=== PATIENT | male | born 1960 | race Caucasian/White ===

== ENCOUNTER → 2018-08-27 11:37 | Outpatient (CLI) | payer SELFPAY ==
[2018-08-27 12:24] LABS: Influenza A and B by PCR Rapid Negative (Negative)
== END ==
PROVIDERS: Family Provider Family Medicine; PCP Family Medicine; Visit Provider Family Medicine
DX: R68.89 Other general symptoms and signs (principal)
CPT/HCPCS: 87400

== ENCOUNTER → 2018-09-08 09:53 | Outpatient (CLI) | payer SELFPAY ==
[2018-09-08 11:08] LABS: Add Manual Diff / Slide Review NO; Basophils Percent Auto 0.7 % (0-2); Hematocrit 38.8 % (41-53); Hemoglobin 13.5 g/dL (13.5-17.5); Lymphocytes Percent Auto 26.8 % (25-40); Mean Corpuscular HGB Conc 34.8 % (30-36); Mean Corpuscular Hemoglobin 32.2 PG (26-34); Mean Corpuscular Volume 92.5 fL (80-100); Monocytes Percent Auto 6.5 % (3-14); Neutrophils Absolute Auto 2800 /uL (3000-5900); Platelet Count 210 X10^3/uL (150-400); Red Blood Cell Count 4.19 X10^6/uL (4.5-5.9); White Blood Cell Count 4.5 X10^3/uL (4.5-11.0)
[2018-09-08 11:22] LABS: Appearance Urine UA CLEAR; Bilirubin Urine UA NEGATIVE (NEGATIVE); Color Urine UA YELLOW; Glucose Urine UA NEGATIVE (Normal); Ketones Urine UA NEGATIVE (NEGATIVE); Leukocyte Esterase Urine UA NEGATIVE (NEGATIVE); Nitrite Urine UA NEGATIVE (Negative); Occult Blood Urine UA NEGATIVE (Negative); Protein Urine UA NEGATIVE (Negative); Specific Gravity Urine UA 1.025 (1.000-1.035); Urobilinogen Urine UA 0.2 E.U./dL (0.2)
[2018-09-08 11:28] LABS: Alanine Aminotransferase 36 IU/L (21-72); Albumin 4.2 g/dL (3.5-5.0); Albumin Globulin Ratio 1.5 (1.0-2.8); Alkaline Phosphatase 60 U/L (38-126); Aspartate Aminotransferase 31 IU/L (17-59); BUN Creatinine Ratio 22.2 (6-22); Bilirubin Total 0.5 mg/dL (0.2-1.3); Blood Urea Nitrogen 20 mg/dL (9-20); Calcium 8.9 mg/dL (8.4-10.2); Carbon Dioxide 26 mmol/L (22-32); Chloride 106 mmol/L (98-107); Cholesterol 181 mg/dL (140-199); Estimated Glomerular Filt Rate > 60.0 mL/min (>60); Globulin 2.8 g/dL (1.7-4.1); Glucose 99 mg/dL (70-100); HDL Cholesterol 49 mg/dL (40-60); HEMOLYSIS < 15 (0-50); LDL Cholesterol Calculated 110 mg/dL (<100); Potassium 4.1 mmol/L (3.4-5.1); Sodium 145 mmol/L (137-145); Triglycerides 108 mg/dL (35-150)
[2018-09-08 11:55] LABS: Thyroid Stimulating Hormone 1.92 uIU/mL (0.47-4.68)
[2018-09-08 11:57] LABS: Prostate Specific Antigen 0.981 ng/mL (0.10-4.00)
[2018-09-10 09:05] LABS: Hepatitis A Antibody IgM NONREACTIVE (NONREACTIVE); Hepatitis Acute Panel Interp 0.01 (NONREACTIVE); Hepatitis B Core Antibody IgM NONREACTIVE (NONREACTIVE); Hepatitis B Surface Antigen NONREACTIVE (NONREACTIVE); Hepatitis C Antibody NONREACTIVE
== END ==
PROVIDERS: Family Provider Family Medicine; PCP Family Medicine; Visit Provider Family Medicine
DX: Z13.220 Encounter for screening for lipoid disorders (principal); Z13.29 Encounter for screening for other suspected endocrine disorder; Z51.81 Encounter for therapeutic drug level monitoring; B82.9 Intestinal parasitism, unspecified; R50.9 Fever, unspecified; Z12.5 Encounter for screening for malignant neoplasm of prostate
CPT/HCPCS: 36415; 80053; 80061; 80074; 81003; 84153; 84443; 85025

== ENCOUNTER → 2018-09-09 16:10 | Outpatient (CLI) | payer SELFPAY | PROVIDERS: Family Provider Family Medicine; PCP Family Medicine; Visit Provider Family Medicine | DX: Z13.9 Encounter for screening, unspecified (principal) ==

== ENCOUNTER → 2018-09-18 10:00 | Outpatient (CLI) | payer SELFPAY | PROVIDERS: Family Provider Family Medicine; PCP Family Medicine; Visit Provider Family Medicine | DX: B82.9 Intestinal parasitism, unspecified (principal); R50.9 Fever, unspecified; R19.7 Diarrhea, unspecified | CPT/HCPCS: 87015; 87045; 87177; 87427; 87899 ==

== ENCOUNTER → 2020-03-23 11:45 | Outpatient (CLI) | payer OTHER, MEDICAID, SELFPAY ==
[2020-03-23 11:53] LABS: Bacteria Urine None Seen; WBC Urine None Seen (0-5/HPF)
[2020-03-23 12:31] LABS: Hematocrit 39.7 % (41-53); Mean Corpuscular HGB Conc 35.1 % (30-36); Mean Corpuscular Hemoglobin 32.6 PG (26-34); Mean Corpuscular Volume 92.8 fL (80-100); Platelet Count 163 X10^3/uL (150-400); Red Blood Cell Count 4.28 X10^6/uL (4.5-5.9); Red Cell Distribution Width 13.1 % (11.6-14.8); White Blood Cell Count 5.5 X10^3/uL (4.5-11.0)
[2020-03-23 13:00] LABS: Alanine Aminotransferase 22 IU/L (<50); Albumin 4.6 g/dL (3.5-5.0); Albumin Globulin Ratio 1.8 (1.0-2.8); Alkaline Phosphatase 72 U/L (38-126); Aspartate Aminotransferase 27 IU/L (17-59); Bilirubin Total 0.6 mg/dL (0.2-1.3); Blood Urea Nitrogen 22 mg/dL (9-20); Calcium 9.4 mg/dL (8.4-10.2); Carbon Dioxide 30 mmol/L (22-32); Chloride 104 mmol/L (98-107); Cholesterol 215 mg/dL (140-199); Estimated Glomerular Filt Rate > 60.0 mL/min (>60); Globulin 2.6 g/dL (1.7-4.1); Glucose 99 mg/dL (70-100); HDL Cholesterol 56 mg/dL (40-60); HEMOLYSIS < 15 (0-50); LDL Cholesterol Calculated 130 mg/dL (<100); Potassium 4.7 mmol/L (3.4-5.1); Sodium 138 mmol/L (137-145); Total Protein 7.2 g/dL (6.3-8.2); Triglycerides 147 mg/dL (35-150)
[2020-03-23 13:05] LABS: Appearance Urine UA CLEAR; Bilirubin Urine UA NEGATIVE (NEGATIVE); Color Urine UA YELLOW; Glucose Urine UA NEGATIVE (Negative); Ketones Urine UA NEGATIVE (NEGATIVE); Leukocyte Esterase Urine UA NEGATIVE (NEGATIVE); Nitrite Urine UA NEGATIVE (Negative); Occult Blood Urine UA TRACE-LYSED (Negative); Protein Urine UA NEGATIVE (Negative); Specific Gravity Urine UA 1.015 (1.000-1.035); Urobilinogen Urine UA 0.2 E.U./dL (0.2)
[2020-03-23 13:21] LABS: Culture Indicated Urine Cult Not Indicated; RBC Urine 0-1/HPF (0-5/HPF)
[2020-03-23 13:22] LABS: TSH w/ Reflex to FT4 3.09 uIU/mL (0.47-4.68)
== END ==
PROVIDERS: Family Provider Family Medicine; PCP Nurse Practitioner Family; Referring Provider Nurse Practitioner Family; Visit Provider Nurse Practitioner Family
DX: Z00.00 Encounter for general adult medical examination without abnormal findings (principal); Z13.6 Encounter for screening for cardiovascular disorders; Z12.5 Encounter for screening for malignant neoplasm of prostate; K42.9 Umbilical hernia without obstruction or gangrene; K92.1 Melena; R14.0 Abdominal distension (gaseous)
CPT/HCPCS: 36415; 80053; 80061; 81001; 84443; 85027; G0103

== ENCOUNTER → 2020-04-08 10:24 | Outpatient (CLI) | payer OTHER, MEDICAID, SELFPAY ==
[2020-04-09 09:11] LABS: COVID19 Sendout Not Detected (Not Detect)
== END ==
PROVIDERS: Family Provider Family Medicine; PCP Nurse Practitioner Family; Visit Provider Physician Assistant
DX: Z01.812 Encounter for preprocedural laboratory examination (principal)
CPT/HCPCS: 87635

== ENCOUNTER 2020-04-11 06:41 | Day surgery (SDC) | payer OTHER, MEDICAID, SELFPAY ==
[2020-04-08 07:36] VITALS: BMI 28.3
[2020-04-11] VITALS (7 sets, daily range): BP systolic 103–131; BP diastolic 69–88; PULSE 58–78; RESP 9–18; TEMP 36.1–36.6; O2SAT 94–99; BMI 28.3
--- NOTE | 2020-04-11 07:29 | SUR.OPER ---
Supine on padded OR bed, head on pillow, arms secured on padded arm boards at <90 degrees abduction, legs uncrossed, safety belt at thigh, tape over blanket over lower legs.
[2020-04-11] MEDS: LACTATED RINGERS 1,000 ML 42 ML IV (07:30)
--- NOTE | 2020-04-11 07:31 | PM.PREOP ---
Pre-operative Note COVID-19 COVID-19 status: Negative Result date/Date tested (Pos, Neg/Pending): 04/08/20 Interval Note History & Physical reviewed/Exam performed by Physician: Yes Changes to H&P: No
[2020-04-11] MEDS: CEFAZOLIN 2 GM/100 ML FROZ.PIGGY IV (07:40)
[2020-04-11] MEDS: BUPIVACAINE 0.5% (PF) VIAL 30 ML INJ (08:09)
--- NOTE | 2020-04-11 09:05 | PM.OP.1 ---
Operative Date/Time/Diagnoses Date of procedure: 04/11/20 Time of procedure: 08:44 Pre-op diagnosis: Umbilical hernia. Intermittent black stool Post-op diagnosis: other (Incisional hernia. Incarcerated.) Procedure & Clinicians Procedure: Repair of hernia. EGD Same procedure as scheduled: Yes Indications: Symptomatic hernia. Intermittent black bowel movements rule out gastric or duodenal ulcer Surgeon: Kofi Sullivan Click Yes if Unassisted: Yes Anesthesia Type: General Operative Notes Findings: Normal EGD. Incisional hernia. Incarcerated with a small amount of preperitoneal fat. Closure Type: primary Specimen(s): none sent Prosthetic devices, grafts, tissues, transplants, or devices: None Estimated Blood Loss (mL): 5 Blood products transfused: none Procedure in detail: Patient was placed supine on the operating room table and underwent general endotracheal anesthesia. A bite block was inserted adjacent to the tube. Scope was advanced under direct vision into the esophagus. The esophagus was normal. GE junction at 40 cm from the incisors. The stomach insufflated well. The body antrum and incisura were all normal in appearance. The pyloric channel was patent. The duodenum was unremarkable the 3rd part. The scope was brought slowly through in the duodenal bulb re-examined and 2nd part re-examined and still nothing was seen. The scope was brought into the stomach and retroflexed. The proximal stomach was normal in appearance. The scope was removed. The patient was then prepped and draped in the usual fashion. Once his very large amount of hair was removed I could see a very fine incision at the upper part of his umbilicus. Clearly an operation had been done here before that he did not recall. This left him with a hernia in the area. I made a small vertical incision under the umbilicus because that is where the location of the hernia sac was. I did not want to devascularize the umbilicus by making a curvilinear incision under it. Dissection was carried down level sac. The sac was from surrounding structures. The sac was opened and found to contain fat which would not reduced through the tiny defect and therefore was excised by transecting it. The fascial edge was identified and cleared of peritoneum. A single figure of 8 was used to close this defect which measured about 5 to 7 mm in diameter. The umbilicus had not been lifted and therefore did not require tacking down. The subcu was closed with interrupted 3 0 Vicryl. The skin was closed with interrupted 4 0 Vicryl subcuticular stitches and Steri-Strips. Dressing was applied the patient was awakened extubated and taken recovery room good condition. Complications: none Post-operative Condition: stable Disposition: PACU
--- NOTE | 2020-04-11 09:11 | SUR.PHASEI ---
Tolerated a few bites of applesauce, swallowing without difficulty.
[2020-04-11] MEDS: OXYCODONE/ACETAMINOPHEN 5/325 TABLET 1 TAB PO (09:14)
== END 2020-04-11 09:45 | disposition home or self-care (01) ==
PROVIDERS: Family Provider Family Medicine; PCP Nurse Practitioner Family; Referring Provider Specialist; Visit Provider Specialist
PROC: 0DJ08ZZ Inspection of Upper Intestinal Tract, Via Natural or Artificial Opening Endoscopic (ICD-10-PCS; CPT 43235; principal; 2020-04-11 07:45)
PROC: (CPT 49561; 2020-04-11 07:45)
DX: K43.0 Incisional hernia with obstruction, without gangrene (principal); R14.0 Abdominal distension (gaseous); K92.1 Melena
CPT/HCPCS: 49561; 43235; J0330; J0690; J1100; J2405; J2704; J3010

== ENCOUNTER → 2020-05-03 11:43 | Outpatient (CLI) | payer OTHER, MEDICAID, SELFPAY | PROVIDERS: Family Provider Family Medicine; PCP Nurse Practitioner Family; Referring Provider Physician Assistant; Visit Provider Physician Assistant | DX: R19.7 Diarrhea, unspecified (principal) | CPT/HCPCS: 87177 ==

== ENCOUNTER → 2020-05-06 09:29 | Outpatient (CLI) | payer OTHER, MEDICAID, SELFPAY ==
[2020-05-06 10:11] LABS: Add Manual Diff / Slide Review NO; Basophils Absolute Auto 0 /uL (0-100); Basophils Percent Auto 0.6 % (0-2); Eosinophils Absolute Auto 100 /uL (0-450); Eosinophils Percent Auto 1.7 % (2-4); Hematocrit 42.1 % (41-53); Hemoglobin 14.3 g/dL (13.5-17.5); Lymphocytes Absolute Auto 1200 /uL (1100-4500); Lymphocytes Percent Auto 22.9 % (25-40); Mean Corpuscular HGB Conc 33.9 % (30-36); Mean Corpuscular Hemoglobin 31.7 PG (26-34); Mean Corpuscular Volume 93.5 fL (80-100); Monocytes Absolute Auto 400 /uL (0-900); Monocytes Percent Auto 8.6 % (3-14); Neutrophils Absolute Auto 3400 /uL (1500-7000); Neutrophils Percent Auto 66.2 % (50-75); Platelet Count 164 X10^3/uL (150-400); Red Cell Distribution Width 12.9 % (11.6-14.8); White Blood Cell Count 5.1 X10^3/uL (4.5-11.0)
[2020-05-06 11:10] LABS: Alanine Aminotransferase 14 IU/L (<50); Albumin 4.8 g/dL (3.5-5.0); Alkaline Phosphatase 82 U/L (38-126); Amylase 74 U/L (30-110); Aspartate Aminotransferase 20 IU/L (17-59); BUN Creatinine Ratio 15.4 (6-22); Bilirubin Total 0.8 mg/dL (0.2-1.3); Blood Urea Nitrogen 14 mg/dL (9-20); Calcium 9.8 mg/dL (8.4-10.2); Carbon Dioxide 23 mmol/L (22-32); Chloride 98 mmol/L (98-107); Estimated Glomerular Filt Rate > 60.0 mL/min (>60); Globulin 2.4 g/dL (1.7-4.1); Glucose 88 mg/dL (70-100); HEMOLYSIS < 15 (0-50); Lipase 272 U/L (23-300); Potassium 4.4 mmol/L (3.4-5.1); Sodium 136 mmol/L (137-145); Total Protein 7.2 g/dL (6.3-8.2)
[2020-05-06 14:53] LABS: Adenovirus F 40/41 Not Detected (Not Detect); Astrovirus Not Detected (Not Detect); Campylobacter Not Detected (Not Detect); Clostridium difficile toxin AB Not Detected (Not Detect); Cryptosporidium Not Detected (Not Detect); Cyclospora cayetanensis Not Detected (Not Detect); Entamoeba histolytica Not Detected (Not Detect); Enteroaggregative E.coli Not Detected (Not Detect); Enteropathogenic E.coli Not Detected (Not Detect); Enterotoxigenic E.coli It/st Not Detected (Not Detect); Giardia lamblia Not Detected (Not Detect); Norovirus GI/GII Not Detected (Not Detect); Plesiomonsa shigelloides Not Detected (Not Detect); Rotavirus A Not Detected (Not Detect); Salmonella Not Detected (Not Detect); Sapovirus Not Detected (Not Detect); Shiga-like toxin-prod E.coli Not Detected (Not Detect); Shigella/Enteroinvasive E.coli Not Detected (Not Detect); Vibrio Not Detected (Not Detect); Vibrio cholerae Not Detected (Not Detect); Yersinia enterocolitica Not Detected (Not Detect)
[2020-05-08 12:36] LABS: H. Pylori Antigen Stool Negative (Negative)
== END ==
PROVIDERS: Family Provider Family Medicine; PCP Nurse Practitioner Family; Referring Provider Physician Assistant; Visit Provider Physician Assistant
DX: R19.7 Diarrhea, unspecified (principal)
CPT/HCPCS: 36415; 80053; 82150; 83690; 85025; 87338; 87507

== ENCOUNTER 2020-06-24 18:44 | Observation (INO) | payer OTHER, MEDICAID, SELFPAY ==
[2020-06-24] VITALS (7 sets, daily range): BP systolic 126–143; BP diastolic 83–91; PULSE 50–65; RESP 14–18; TEMP 36.1–36.7; O2SAT 95–99; BMI 28.1
--- NOTE | 2020-06-24 19:24 | DI.RAD.S_ITS ---
PROCEDURE: XR CHEST 1V INDICATIONS: Chest pain TECHNIQUE: One view of the chest was acquired. COMPARISON: None. FINDINGS: Surgical changes and devices: None. Lungs and pleura: Lungs are clear. No pleural effusions or pneumothorax. Mediastinum: Mediastinal contours appear normal. Heart size is normal. Bones and chest wall: No suspicious bony lesions. Overlying soft tissues appear unremarkable. IMPRESSION: No acute cardiopulmonary disease process. Dictated by: Malinda Lilly MD, PhD on 06/24/2020 at 20:24 Approved by: Malinda Lilly MD, PhD on 06/24/2020 at 20:24
[2020-06-24 20:00] LABS: Add Manual Diff / Slide Review NO; Basophils Absolute Auto 100 /uL (0-100); Eosinophils Absolute Auto 200 /uL (0-450); Eosinophils Percent Auto 3.1 % (2-4); Hematocrit 38.3 % (41-53); Hemoglobin 13.3 g/dL (13.5-17.5); Lymphocytes Absolute Auto 1700 /uL (1100-4500); Lymphocytes Percent Auto 29.6 % (25-40); Mean Corpuscular HGB Conc 34.7 % (30-36); Mean Corpuscular Hemoglobin 32.8 PG (26-34); Mean Corpuscular Volume 94.6 fL (80-100); Monocytes Absolute Auto 500 /uL (0-900); Monocytes Percent Auto 9.2 % (3-14); Neutrophils Absolute Auto 3200 /uL (1500-7000); Neutrophils Percent Auto 57.1 % (50-75); Platelet Count 156 X10^3/uL (150-400); Red Blood Cell Count 4.05 X10^6/uL (4.5-5.9); Red Cell Distribution Width 14.2 % (11.6-14.8); White Blood Cell Count 5.7 X10^3/uL (4.5-11.0)
[2020-06-24 20:17] LABS: INR 0.9 (0.9-1.3); Prothrombin Time 10.9 SECONDS (10.1-12.7)
[2020-06-24 20:19] LABS: PTT Partial Thromboplastin Tim 26 SECONDS (26.4-36.2)
[2020-06-24 20:22] LABS: Alanine Aminotransferase 12 IU/L (<50); Albumin 4.1 g/dL (3.5-5.0); Albumin Globulin Ratio 1.5 (1.0-2.8); Alkaline Phosphatase 71 U/L (38-126); Aspartate Aminotransferase 24 IU/L (17-59); BUN Creatinine Ratio 24.7 (6-22); Bilirubin Total 0.6 mg/dL (0.2-1.3); Blood Urea Nitrogen 24 mg/dL (9-20); Calcium 9.3 mg/dL (8.4-10.2); Carbon Dioxide 24 mmol/L (22-32); Chloride 104 mmol/L (98-107); Creatine Kinase 99 U/L (55-170); Estimated Glomerular Filt Rate > 60.0 mL/min (>60); Globulin 2.7 g/dL (1.7-4.1); Glucose 98 mg/dL (70-100); HEMOLYSIS < 15 (0-50); Potassium 3.8 mmol/L (3.4-5.1); Sodium 137 mmol/L (137-145); Total Protein 6.8 g/dL (6.3-8.2)
[2020-06-24 20:34] LABS: Troponin I < 0.012 ng/mL (0.01-0.034)
--- NOTE | 2020-06-24 21:25 | ED.CHESTPAIN ---
HPI - Chest Pain General Chief Complaint: Chest Pain Stated Complaint: PALPITATIONS LEFT SHOULDER PAIN Time Seen by Provider: 06/24/20 19:24 Source: patient Mode of arrival: Ambulatory History of Present Illness HPI narrative: Patient complains off and on left shoulder arm discomfort the past few months. At times fatigue. No direct chest pain. However today started with palpitations. Not had that before. Left shoulder discomfort more severe recently. Non reproducible. Family history of coronary disease including sister and father. Last stress test in his 30s. No history of high blood pressure or hypercholesteremia or smoking. No recent illness. No chest pain or arm discomfort at this time. He took 81 mg aspirin today Related Data Home Medications Medication Instructions Recorded Confirmed ascorbic acid (vitamin C) 500 mg 1,000 mg PO DAILY 03/23/20 06/24/20 capsule multivitamin 1 tab PO DAILY 03/23/20 06/24/20 Allergies Allergy/AdvReac Type Severity Reaction Status Date / Time No Known Drug Allergies Allergy Verified 04/28/20 09:32 Review of Systems Review of Systems Narrative: GENERAL: Denies chills, fatigue, malaise, fever, sweats. HEENT: Denies sinus pain, ear pain, sore throat, difficulty swallowing, dizziness. RESPIRATORY: Denies dyspnea, cough, wheezing, hemoptysis, sputum. CARDIOVASCULAR: Denies chest pain, complaints palpitations, denies orthopnea, edema, GASTROINTESTINAL: Denies nausea, vomiting, abdominal pain, diarrhea, constipation, melena. : Denies dysuria, frequency, incontinence, hematuria, urinary retention. MUSCULOSKELETAL: denies weakness, joint pain, or bony pain SKIN: Denies rash, skin lesions NEUROLOGIC: Denies weakness, headache, numbness, change in speech, confusion, seizures, incoordination. PSYCHIATRIC: No concerning psychosocial issues. ROS Unobtainable: All systems reviewed & are unremarkable except as noted in HPI and below Patient History Medical History (Updated 06/25/20 @ 00:18 by MATILDE Hurt) Abdominal bloating (Acute) Black stool (Acute) Primary insomnia (03/08/17) Umbilical hernia (Acute) Surgical History (Updated 06/25/20 @ 00:18 by MATILDE Hurt) History of colonoscopy (Acute) History of removal of cyst (Acute) Status post amputation of extremity Status post hernia repair Family History (Updated 06/25/20 @ 00:20 by MATILDE Hurt) Grandmother Heart disease Grandfather Cancer Grandmother Dementia Father Heart disease Cancer Mother Gallstones Sister Cardiac arrhythmia S/P implantation of automatic cardioverter/defibrillator (AICD) Grandfather Suicide Social History marital status: household members: spouse occupational status: employed Smoking Status: Never smoker alcohol intake: current substance use type: does not use Smoking Status: Never smoker alcohol intake frequency: a few times a week Substance Use Type: does not use Exam Narrative Exam Narrative: GENERAL: patient appears stated age. Well-nourished, well-developed patient, in no distress, not toxic HEAD: Atraumatic. Normocephalic. EYES: Pupils equal round and reactive. Extraocular motions intact. No scleral icterus. No injection or drainage. ENT: Nose without bleeding, purulent drainage. Throat without erythema, tonsillar hypertrophy or exudate. Airway patent. NECK: Trachea midline. Non tender CARDIOVASCULAR: Regular rate and rhythm without murmurs, gallops, or rubs. RESPIRATORY: Clear to auscultation. Breath sounds equal bilaterally. No wheezes, rales, or rhonchi. GASTROINTESTINAL: Abdomen soft, non-tender, nondistended. EXTREMITIES: No edema or joint tenderness. BACK: Nontender without deformity or crepitance. No flank tenderness. NEURO: AOx4. SKIN: No rash or erythema of visible areas PSYCH: Not anxious, is cooperative Initial Vital Signs Initial Vital Signs: Vital Signs Temperature 97.0 F L 06/24/20 18:52 Pulse Rate 65 06/24/20 18:52 Respiratory Rate 16 06/24/20 18:52 Blood Pressure 139/87 06/24/20 18:52 Pulse Oximetry 99 06/24/20 18:52 Course Course Course Narrative: Informed patient and he agrees for admission here. No chest pain at this time. Decision to Admit Date: 06/24/20 Decision to Admit time: 21:34 Orders Ordered: ED Orders 06/24/20 18:51 EKG-12 Lead Stat 06/24/20 19:24 XR chest 1V Stat 06/24/20 19:55 Complete Blood Count AUTO DIFF Stat Comprehensive Metabolic Panel Stat Partial Thromboplastin Time Stat Prothrombin Time INR Stat Troponin & CK Cardiac Panel Stat 06/24/20 21:20 COVID19 -ED/INPAT/OR/L&D Stat Acetaminophen (Tylenol) 650 mg PO Q6HR PRN PRN Reason: Fever/Mild Pain (1-3) Al Hydrox/Mg Hydrox/Simethicone (Maalox Plus) 30 ml PO Q6HR PRN PRN Reason: Dyspepsia Aspirin (Aspirin Ec) 81 mg PO DAILY [facility] Atorvastatin Calcium (Lipitor) 20 mg PO BEDTIME [facility] Calcium Carbonate (Tums) 1,000 mg PO Q4HR PRN PRN Reason: Dyspepsia Heparin Sodium (Porcine) (Heparin) 5,000 unit SUBCUT BID [facility] Sodium Chloride (Normal Saline 0.45%) 1,000 mls @ 75 mls/hr IV CONT MATT Last Admin: 06/25/20 00:21 Dose: 75 mls/hr Documented by: GLENDY Morphine Sulfate (Morphine) 2 mg IV Q5MIN PRN PRN Reason: Chest Pain Naloxone HCl (Narcan) 0.2 mg IV Q2MIN PRN PRN Reason: Opiate Reversal Nitroglycerin (Nitrostat) 0.4 mg SL [id number] PRN PRN Reason: Chest Pain Ondansetron HCl (Zofran) 4 mg IV Q8HR PRN PRN Reason: Nausea And Vomiting Discontinued Medications Al Hydrox/Mg Hydrox/Simethicone (Maalox Plus) 30 ml PO NOW ONE Stop: 06/24/20 23:21 Last Admin: 06/25/20 00:19 Dose: 30 ml Documented by: GLENDY Aspirin (Aspirin Ec) 243 mg PO NOW ONE Stop: 06/24/20 21:06 Last Admin: 06/24/20 21:48 Dose: 243 mg Documented by: FLORENCIO Naloxone HCl (Narcan) 0.2 mg IV Q2MIN PRN PRN Reason: Opiate Reversal Pantoprazole Sodium (Protonix) 40 mg IV NOW ONE Stop: 06/24/20 23:21 Last Admin: 06/25/20 00:19 Dose: 40 mg Documented by: GLENDY Reevaluation(s) Reevaluation #1: No chest pain no palpitations at this time. Time: 21:34 Consultations Consultation #1: s/w dr talley, cardiology..pt can stay here for r/o and echo Time: 21:06 Consultation #2: Spoke with hospitalist, evelin Arreguin, will admit Time: 21:41 Vital Signs Vital signs: Vital Signs - 8 hr 06/24/20 18:52 06/24/20 20:00 06/24/20 20:30 Temperature 97.0 F L Pulse Rate 65 54 L 53 L Respiratory Rate 16 14 14 Blood Pressure 139/87 126/85 Pulse Oximetry 99 98 95 06/24/20 21:00 06/24/20 21:30 Temperature Pulse Rate 50 L 62 Respiratory Rate 15 16 Blood Pressure 138/88 141/91 H Pulse Oximetry 98 96 MDM - Chest Pain Differential Diagnosis Differential diagnosis: Likely stable angina, unstable angina pectoris and atypical chest pain Lab Data Attestation: I reviewed the patient's lab results. Result diagrams: 06/24/20 19:55 06/24/20 19:55 Labs: Lab Results 06/24/20 06/24/20 06/24/20 Range/Units 19:55 19:55 19:55 WBC 5.7 (4.5-11.0) X10^3/uL RBC 4.05 L (4.5-5.9) X10^6/uL Hgb 13.3 L (13.5-17.5) g/dL Hct 38.3 L (41-53) % MCV 94.6 (80-100) fL MCH 32.8 (26-34) PG MCHC 34.7 (30-36) % RDW 14.2 (11.6-14.8) % Plt Count 156 (150-400) X10^3/uL Neut % (Auto) 57.1 (50-75) % Lymph % (Auto) 29.6 (25-40) % Murray % (Auto) 9.2 (3-14) % Eos % (Auto) 3.1 (2-4) % Baso % (Auto) 1.0 (0-2) % Neut # (Auto) 3200 (4347-2966) /uL Lymph # (Auto) 1700 (5329-0555) /uL Murray # (Auto) 500 (0-900) /uL Eos # (Auto) 200 (0-450) /uL Baso # (Auto) 100 (0-100) /uL PT 10.9 (10.1-12.7) SECONDS INR 0.9 (0.9-1.3) APTT 26 L (26.4-36.2) SECONDS Sodium 137 (137-145) mmol/L Potassium 3.8 (3.4-5.1) mmol/L Chloride 104 (98-107) mmol/L Carbon Dioxide 24 (22-32) mmol/L BUN 24 H (9-20) mg/dL Creatinine 0.97 (0.66-1.25) mg/dL Estimated GFR > 60.0 (>60) mL/min BUN/Creatinine Ratio 24.7 H (6-22) Glucose 98 (70-100) mg/dL Calcium 9.3 (8.4-10.2) mg/dL Magnesium (1.6-2.3) mg/dL Total Bilirubin 0.6 (0.2-1.3) mg/dL AST 24 (17-59) IU/L ALT 12 (<50) IU/L Alkaline Phosphatase 71 (38-126) U/L Total Creatine Kinase 99 (55-170) U/L CK-MB (CK-2) TNP CK-MB (CK-2) Rel Index TNP Troponin I < 0.012 (0.01-0.034) ng/mL Total Protein 6.8 (6.3-8.2) g/dL Albumin 4.1 (3.5-5.0) g/dL Globulin 2.7 (1.7-4.1) g/dL Albumin/Globulin Ratio 1.5 (1.0-2.8) COVID-19 PCR (Negative) 06/24/20 06/24/20 Range/Units 19:57 21:20 WBC (4.5-11.0) X10^3/uL RBC (4.5-5.9) X10^6/uL Hgb (13.5-17.5) g/dL Hct (41-53) % MCV (80-100) fL MCH (26-34) PG MCHC (30-36) % RDW (11.6-14.8) % Plt Count (150-400) X10^3/uL Neut % (Auto) (50-75) % Lymph % (Auto) (25-40) % Murray % (Auto) (3-14) % Eos % (Auto) (2-4) % Baso % (Auto) (0-2) % Neut # (Auto) (6958-7035) /uL Lymph # (Auto) (6859-7967) /uL Murray # (Auto) (0-900) /uL Eos # (Auto) (0-450) /uL Baso # (Auto) (0-100) /uL PT (10.1-12.7) SECONDS INR (0.9-1.3) APTT (26.4-36.2) SECONDS Sodium (137-145) mmol/L Potassium (3.4-5.1) mmol/L Chloride (98-107) mmol/L Carbon Dioxide (22-32) mmol/L BUN (9-20) mg/dL Creatinine (0.66-1.25) mg/dL Estimated GFR (>60) mL/min BUN/Creatinine Ratio (6-22) Glucose (70-100) mg/dL Calcium (8.4-10.2) mg/dL Magnesium 2.2 (1.6-2.3) mg/dL Total Bilirubin (0.2-1.3) mg/dL AST (17-59) IU/L ALT (<50) IU/L Alkaline Phosphatase (38-126) U/L Total Creatine Kinase (55-170) U/L CK-MB (CK-2) CK-MB (CK-2) Rel Index Troponin I (0.01-0.034) ng/mL Total Protein (6.3-8.2) g/dL Albumin (3.5-5.0) g/dL Globulin (1.7-4.1) g/dL Albumin/Globulin Ratio (1.0-2.8) COVID-19 PCR Negative (Negative) Imaging Data Chest x-ray: Radiologist's Impression: [address] [address] XRay Report Signed Patient: Rosalino Martínez PMR#: [id number] : 2Acct:[id number] Age/Sex: 60 / MDate of Service: 06/24/20 Loc: ED Accession Number: [id number] Procedure: XR chest 1V Ordering Provider: Rigoberto Vee MD PROCEDURE: XR CHEST 1V INDICATIONS: Chest pain TECHNIQUE: One view of the chest was acquired. COMPARISON: None. FINDINGS: Surgical changes and devices: None. Lungs and pleura: Lungs are clear. No pleural effusions or pneumothorax. Mediastinum: Mediastinal contours appear normal. Heart size is normal. Bones and chest wall: No suspicious bony lesions. Overlying soft tissues appear unremarkable. IMPRESSION: No acute cardiopulmonary disease process. Dictated by: Malinda Lilly MD, PhD on 06/24/2020 at 20:24 Approved by: Malinda Lilly MD, PhD on 06/24/2020 at 20:24 ECG Data Attestation: I personally reviewed and interpreted this ECG as follows: Interpretation: Sinus bradycardia no ST elevation or depression ventricular rate 56 MDM Narrative Medical decision making narrative: Worsening symptoms appropriate for admission here today for echo and rule out. I did speak with brine maker and agrees for admission here. Discharge Plan Departure Patient Disposition: Admitted as Observation Clinical Impression: Atypical chest pain Discharge Date/Time: 06/24/20 22:01 Referrals: Claire Hodgson ARNP [Primary Care Provider] - Admit Date/Time: 06/24/20 21:41 Admit Provider: Corey Arreguin
[2020-06-24] MEDS: ASPIRIN EC 81 MG TABLET 243 MG PO (21:48)
[2020-06-24 21:51] LABS: COVID19 -Nasal RAPID Negative (Negative)
[2020-06-24 23:02] LABS: Magnesium 2.2 mg/dL (1.6-2.3)
--- NOTE | 2020-06-24 23:22 | P.HP_ITS ---
History of Present Illness History of Present Illness Date Patient Seen: 06/24/20 Time Patient Seen: 23:00 Chief complaint: PALPITATIONS LEFT SHOULDER PAIN Narrative: Mr. Rosalino Martínez is a 60-year-old male with a past medical history significant for insomnia for which she previously took clonazepam but is no longer and urinary frequency who presents to the ER with complaints of palpitations. Patient reports having left posterior shoulder discomfort off and on for approximately 1 month. He describes location as next to his left scapula. He describes as an aching pain that is not palpable reproducible nor worsened with activity. The patient reports developing intermittent palpitations today that are brief and non associative with activity. He endorses mild chest pressure with shortness of breath in association with the episodes but denies diaphoresis. He has had no nausea or vomiting and denies cough or wheezing. The patient states he was concerned enough to take a 81 mg aspirin today. He has taken no other medications and a thing seems to make the discomfort better or worse. The patient provides a history of flying back from [place] yesterday. He denies any pleuritic chest discomfort, has no calf or leg pain. He states he does get up and walk around on the aircraft does not use compression stockings on long flights. He does have a significant family history of cardiac disease with his father having an arrhythmia for which he is anticoagulated an implanted cardiac defibrillator, his mother has mitral valve disease and his sister is described as having cardiac syncope and also had implanted cardiac defibrillator. The patient has had a previous cardiac evaluation with a stress test at age 32. Upon arrival to the ER the patient is afebrile with temperature 97.0?, his heart rate of 65, blood pressure 139/87, respirations 16 saturating 99% on room air. A chest x-ray is obtained which finds no acute cardiopulmonary processes. On laboratory analysis he has a white count of 5.7, hemoglobin of 13.3 and hematocrit of 38.3. He has a PT of 10.9 and INR is 0.9 and a PTT of 26. His electrolytes are within normal limits with a potassium of 3.8 and has a BUN of 24 and a creatinine 0.97. His magnesium level is 2.2. His liver functions are all within normal range and he has a total CK of 99 and a negative troponin less than 0.012. On 12 lead EKG sinus bradycardia with ventricular rate of [address] T-wave changes, no evidence of infarct. COVID-19 screening is negative. Cardiology is contacted by the ER provider recommends admission for monitoring serial troponins and echocardiogram. Per verbal report from the ER provider cardiology indicates the patient can undergo stress test on outpatient basis. In the ER the patient received aspirin 243 mg and is admitted to the medicine service for chest pain rule out ACS. Patient History Medical History (Updated 06/25/20 @ 00:18 by MATILDE Hurt) Abdominal bloating (Acute) Black stool (Acute) Primary insomnia (03/08/17) Umbilical hernia (Acute) Surgical History (Updated 06/25/20 @ 00:18 by MATILDE Hurt) History of colonoscopy (Acute) History of removal of cyst (Acute) Status post amputation of extremity Status post hernia repair Family & Social History Family History (Updated 06/25/20 @ 00:20 by MATILDE Hurt) Grandmother Heart disease Grandfather Cancer Grandmother Dementia Father Heart disease Cancer Mother Gallstones Sister Cardiac arrhythmia S/P implantation of automatic cardioverter/defibrillator (AICD) Grandfather Suicide Social History: household members spouse Safety & Behavioral: Feels Safe in Current Yes Environment Been Physically Hurt or No Threatened By a Person Suicidal Ideation Description None Suicide Plan Description No Plan Tobacco & Substance use: Smoking Status Never smoker alcohol intake current alcohol intake frequency a few times a week Substance Use Type does not use Meds Home Medications and Allergies Home Medications Medication Instructions Recorded Confirmed Type ascorbic acid (vitamin C) 500 mg 1,000 mg PO DAILY 03/23/20 06/24/20 History capsule multivitamin 1 tab PO DAILY 03/23/20 06/24/20 History Allergies Allergy/AdvReac Type Severity Reaction Status Date / Time No Known Drug Allergies Allergy Verified 04/28/20 09:32 Review of Systems Review of Systems ROS: Yes All systems reviewed with the patient and are negative except as otherwise documented Exam Vital Signs (past 8 hours): - 06/24/20 18:52 06/24/20 20:00 06/24/20 20:30 Temperature 97.0 F L Pulse Rate 65 54 L 53 L Respiratory Rate 16 14 14 Blood Pressure 139/87 126/85 Pulse Oximetry 99 98 95 06/24/20 21:00 06/24/20 21:30 06/24/20 21:57 Temperature 98.0 F Pulse Rate 50 L 62 50 L Respiratory Rate 15 16 16 Blood Pressure 138/88 141/91 H 130/84 Pulse Oximetry 98 96 98 06/24/20 22:45 Temperature 97.0 F L Pulse Rate 63 Respiratory Rate 18 Blood Pressure 143/83 H Pulse Oximetry 99 Oxygen Delivery Method Room Air Narrative Exam Narrative: GENERAL APPEARANCE: well developed, well nourished, in no acute distress. HEENT: Normocephalic, PERRLA, sclera is anicteric, EOMs intact without nystagmus, no rhinorrhea, mucous membranes are moist and pink without lesions or exudate. NECK/THYROID: neck supple, no JVD, no carotid bruit, no thyromegaly, trachea midline. LYMPH NODES: no cervical or supraclavicular lymphadenopathy. SKIN: [place], warm and dry, no visible lesions, rashes, ulcerations or petechiae. HEART: Bradycardic heart rate with regular rhythm, S1-S2, no murmur, no rubs or gallops, brisk capillary refill, no edema LUNGS: clear to auscultation bilaterally, no coarseness crackles or wheezing, no cough present CHEST: Symmetrical movement, no accessory muscle use, good tidal volume no pain to AP or lateral compression. ABDOMEN: Soft, no distention, epigastric discomfort on palpation, no abdominal tenderness, no guarding or peritoneal signs, no organomegaly, no flank or suprapubic tenderness, active bowel tones. BACK: Normal curvature, nontender to palpation, no CVA tenderness on percussion EXTREMITIES: No pain with range of motion upper extremities, strength is 5/5 and symmetrical, no deformities or joint effusions, stable gait, no calf tenderness, negative Homans sign. NEUROLOGIC: AAO x4, no focal neurologic deficits, cranial nerves II-XII grossly intact, sensation intact to light touch, hearing grossly normal to speech. PSYCH: Good judgment, good insight, linear thought process, cooperative, appropriate with stable behavior Objective Labs Result Diagrams: 06/24/20 19:55 06/24/20 19:55 Labs: Laboratory Results - last 24 hr 06/24/20 06/24/20 06/24/20 19:55 19:55 19:55 WBC 5.7 RBC 4.05 L Hgb 13.3 L Hct 38.3 L MCV 94.6 MCH 32.8 MCHC 34.7 RDW 14.2 Plt Count 156 Neut % (Auto) 57.1 Lymph % (Auto) 29.6 [place] % (Auto) 9.2 Eos % (Auto) 3.1 Baso % (Auto) 1.0 Neut # (Auto) 3200 Lymph # (Auto) 1700 [place] # (Auto) 500 Eos # (Auto) 200 Baso # (Auto) 100 PT 10.9 INR 0.9 APTT 26 L Sodium 137 Potassium 3.8 Chloride 104 Carbon Dioxide 24 BUN 24 H Creatinine 0.97 Estimated GFR > 60.0 BUN/Creatinine Ratio 24.7 H Glucose 98 Calcium 9.3 Magnesium Total Bilirubin 0.6 AST 24 ALT 12 Alkaline Phosphatase 71 Total Creatine Kinase 99 CK-MB (CK-2) TNP CK-MB (CK-2) Rel Index TNP Troponin I < 0.012 Total Protein 6.8 Albumin 4.1 Globulin 2.7 Albumin/Globulin Ratio 1.5 COVID-19 PCR 06/24/20 06/24/20 19:57 21:20 WBC RBC Hgb Hct MCV MCH MCHC RDW Plt Count Neut % (Auto) Lymph % (Auto) [place] % (Auto) Eos % (Auto) Baso % (Auto) Neut # (Auto) Lymph # (Auto) [place] # (Auto) Eos # (Auto) Baso # (Auto) PT INR APTT Sodium Potassium Chloride Carbon Dioxide BUN Creatinine Estimated GFR BUN/Creatinine Ratio Glucose Calcium Magnesium 2.2 Total Bilirubin AST ALT Alkaline Phosphatase Total Creatine Kinase CK-MB (CK-2) CK-MB (CK-2) Rel Index Troponin I Total Protein Albumin Globulin Albumin/Globulin Ratio COVID-19 PCR Negative Assessment & Plan Assessment & Plan narrative: This is a 60-year-old former smoker who only has medical history of insomnia but a strong family history of cardiac disease having undergone previous cardiac workup at age 32. Is a former smoker quitting at age 39. Patient has had posterior wall chest pain at the left scapular border for approximately 1 month that would common go on associated with activity or movement. The patient returned home a on a flight from [place] yesterday and developed onset of palpitations today. 1. Atypical chest pain, left posterior chest wall intermittent for 1 month, rule out ACS, present on admission, active. -posterior chest wall pain without changes with movement or activity, nothing makes the pain better or worse. The patient has a strong family history of 1st degree relatives with heart disease, no personal history of hyperlipidemia or hypertension. -12 lead EKG finds sinus bradycardia with ventricular rate of 55 without ectopy, ST/T-wave changes or infarct. -total CK is 99 and cardiac troponin is less than 0.012. Will obtain trend 3 troponins. -patient just completed a long overseas flight [place], no calf pain, will obtain D-dimer. -patient with epigastric tenderness which may be referring to back, ordered Maalox p.o. and Protonix 40 mg IV x1 now. -per cardiology recommendation related by ER physician, ordered echocardiogram. -multiple nitroglycerin 0.4 mg sublingual every 5 minutes x3 for chest pain, morphine sulfate 2 mg IV for chest pain unrelieved by nitro. 2. Primary Insomnia, chronic, stable. -patient recently took clonazepam as a sleep aid and discontinue the medication a few years ago. -patient travels frequently between the [facility] and [facility] and [facility], he has frequent disruptions of his sleep cycle however uses no sleep aids. VTE prophylaxis: SCDs, heparin IV fluid: Normal saline 75 cc/hour Diet: Heart healthy Code status: Full code, he does need his mother be his surrogate decision maker. The patient is admitted to the hospital due to the severity of symptoms and potential risk for complications, adverse events and further evaluation and heart monitoring. The patient is admitted as observation with expected length of stay to be less than 2 midnights. Scores GCS [place] coma scale eye opening: Spontaneous Roberto coma scale verbal response: Orientated [place] coma scale motor response: Obey commands [place] coma scale total score: 15
[2020-06-25 00:18] LABS: D Dimer < 200 ng/mL (<230)
[2020-06-25] MEDS: MAG HYDROX/ALUM/SIMETH 30 ML UDC PO (00:19)
[2020-06-25] MEDS: PANTOPRAZOLE 40 MG VIAL IV (00:19)
[2020-06-25] MEDS: SODIUM CHLORIDE 0.45% 1,000 ML 75 ML IV ×2 (00:21→12:56)
[2020-06-25 00:30] LABS: Troponin I < 0.012 ng/mL (0.01-0.034)
[2020-06-25 00:44] VITALS: BP 104/71; PULSE 57; RESP 16; TEMP 36.9; O2SAT 96
[2020-06-25 05:15] LABS: Add Manual Diff / Slide Review NO; BUN Creatinine Ratio 18.8 (6-22); Basophils Absolute Auto 0 /uL (0-100); Basophils Percent Auto 0.9 % (0-2); Blood Urea Nitrogen 18 mg/dL (9-20); Calcium 8.7 mg/dL (8.4-10.2); Carbon Dioxide 29 mmol/L (22-32); Chloride 105 mmol/L (98-107); Cholesterol 163 mg/dL (140-199); Eosinophils Absolute Auto 200 /uL (0-450); Estimated Glomerular Filt Rate > 60.0 mL/min (>60); Glucose 102 mg/dL (70-100); HDL Cholesterol 49 mg/dL (40-60); HEMOLYSIS < 15 (0-50); Hematocrit 37.8 % (41-53); Hemoglobin 12.8 g/dL (13.5-17.5); LDL Cholesterol Calculated 94 mg/dL (<100); Lymphocytes Absolute Auto 1400 /uL (1100-4500); Mean Corpuscular HGB Conc 33.8 % (30-36); Mean Corpuscular Hemoglobin 32.1 PG (26-34); Mean Corpuscular Volume 94.9 fL (80-100); Monocytes Absolute Auto 400 /uL (0-900); Monocytes Percent Auto 8.6 % (3-14); Neutrophils Absolute Auto 2900 /uL (1500-7000); Neutrophils Percent Auto 58.5 % (50-75); Platelet Count 150 X10^3/uL (150-400); Potassium 4.2 mmol/L (3.4-5.1); Red Blood Cell Count 3.98 X10^6/uL (4.5-5.9); Red Cell Distribution Width 14.1 % (11.6-14.8); Sodium 139 mmol/L (137-145); Triglycerides 100 mg/dL (35-150); White Blood Cell Count 4.9 X10^3/uL (4.5-11.0)
[2020-06-25 05:26] LABS: Troponin I < 0.012 ng/mL (0.01-0.034)
[2020-06-25 05:57] VITALS: BP 108/74; PULSE 57; RESP 16; TEMP 36.8
[2020-06-25 07:57] VITALS: BP 112/70; PULSE 54; RESP 16; TEMP 36.7; O2SAT 97
[2020-06-25 09:06] VITALS: PULSE 66; RESP 16; O2SAT 98
[2020-06-25] MEDS: HEPARIN 5,000 UNIT/ML VIAL 5000 UNIT SUBCUT (09:21)
[2020-06-25] MEDS: ASPIRIN EC 81 MG TABLET PO (09:21)
[2020-06-25 11:17] VITALS: BP 132/83; PULSE 66; RESP 16; TEMP 36.8; O2SAT 99
--- NOTE | 2020-06-25 11:29 | CM.DANOTE ---
Patient is a 60 year old male who was admitted on 06/24/20 for Palpitations/Shoulder Pain. Pt has [facility] and [employer] for insurance and his PCP is Dr. Claire Hodgson. EMR was reviewed. Per , pt with hx of insomnia and has had shoulder pain for about a month and now with chest pain and r/o of ACS. Echo ordered and pending. SW met briefly bedside with pt and MD and pt confirms that he is independent at baseline and drives and just returned from a visit in [place] and began having chest pains. Pt aware that he will likely need cardiology follow up in the outpt setting and is hoping to find out more information from his Echo. Per , pt may be able to d/c home later today pending Echo results. Plan: SW to follow closely after Echo to determine d/c planning needs towards possible d/c home today. YUMIKO De La Garza Discharge Planning/Care Management CM Discharge Assessment Start: 06/25/20 11:27 Freq: Status: Active Protocol: Document 06/25/20 11:27 BF (Rec: 06/25/20 11:29 BF [id number]) Discharge Planning Assessment Assigned Stocking Inspector YUMIKO Robles DPOA/Assigned Designee Name none Advance Directives? No Advance Directives on File No History Provided By Patient,Medical Record Has Patient been admitted in last 30 No days? Prior Living Arrangements House Household Members spouse Type of transporation used prior to Drives own vehicle admit Independent with ADL's Yes Is patient alert and oriented? Yes Caregiver for Another No Comment home with outpt cardiology follow up likely Barriers to Discharge No Discharge Plan Home Transportation Arrangement Spouse likely able to provide transport at d/c Referrals Initiated None needed Whiteboard Updated in Patient Room with Yes name and ext. # of Stocking Inspector Review Status In Process Please Provide Date Initial DC 06/25/20 Assessment Was Performed Next Review Type Continued Stay Review
--- NOTE | 2020-06-25 13:50 | PC.NURSE ---
Shift summary: Alert and oriented X3. C/O L chest discomfort/tightness 10/09-11/09. States this afternoon that actually it feels a little better than it did this morning. VSS. Room air. Tele monitoring ongoing. Lungs CTA, denies SOB. HRR. IVF per orders, site in R FA WNL. Indep with mobility, gait steady. Agrees to alert nursing with any new/worsening chest pain. Resting in bed, call light and belongings within reach. ECHO just heading into room now.
--- NOTE | 2020-06-25 14:05 | DI.ECHO.S_ITS ---
Echocardiogram Report + + :Name: PRASAD ZARATE Study Date: 06/25/2020 Height: 68 in : :[facility] Exam Location: [facility] Weight: 185 lb : : Gender: Male BSA: 2.0 m2 : :: 1960 Age: 60 yrs BP: 132/82 mmHg: :Reason For Study: Chest pain : :Ordering Physician: [place] : :Hospitalist Performed By: Hilda Page : :Referring: DOMINIC SANTIAGO : + + Interpretation Summary 1. Normal LV size, systolic function and wall motion. 2. LVEF 60%. 3. Normal RV size and systolic function. 4. Anatomically normal valves and Doppler flows 5. The aortic root is mildly dilated at 4.4 cm with the ascending aorta being at the upper limits of normal. 6. Normal pericardium without effusion 7. Unable to calculate pulmonary artery systolic pressure due to inadequate TR jet 8. Normal sinus rhythm Procedure: A two-dimensional transthoracic echocardiogram with color flow and Doppler was performed. The study quality was technically adequate. There is no prior echocardiogram noted for this patient. The patient was in normal sinus rhythm during the exam. The patient had occasional PACs during the exam. Left Ventricle: The left ventricle is normal in size, wall thickness, and systolic function without any focal wall motion abnormalities. The ejection fraction is estimated to be 60-65%. Diastolic parameters suggest probable normal left ventricular diastolic function and normal filling pressures. Right Ventricle: The right ventricle is normal in size and function. Atria: Both atria are normal in size. There is no Doppler evidence for an interatrial shunt. Mitral Valve: The mitral valve is normal in structure and function. There is trace mitral regurgitation. Aortic Valve: The aortic valve is trileaflet. The aortic valve opens well. No aortic regurgitation is present. Tricuspid Valve: The tricuspid valve is normal in structure and function. There is trace tricuspid regurgitation. Pulmonary artery pressures cannot be estimated because of the lack of a measurable TR jet velocity. Pulmonic Valve: The pulmonic valve is not well visualized. There is a trace or physiologic amount of pulmonic regurgitation. Great Vessels: The aortic root is moderately dilated. The ascending aorta is mildly enlarged. The pulmonary artery is not well visualized, but is probably normal size. The IVC is of normal diameter and collapses greater than 50% with a sniff. This suggests a low right atrial pressure of 3 mm Hg. Pericardium/ Pleura There is no pericardial effusion. There is no pleural effusion. MMode/2D Measurements & Calculations LVIDd: 4.5 cm LVOT diam: 2.3 cm LVIDs: 2.3 cm Ao root diam: 4.4 cm FS: 48.0 % asc Aorta Diam: 3.6 cm EPSS: 0.31 cm IVSd: 0.81 cm LVPWd: 0.85 cm LV aleman. diameter/BSA (cm/m^2): 2.3 LV sys. diameter/BSA (cm/m^2): 1.2 LA A2 area: 17.9 cm2 RA long axis: 5.2 cm LA A4 area: 17.2 cm2 RA area: 15.5 cm2 LA length (vol): 4.7 cm RA vol: 39.6 ml LA vol: 55.2 ml RA : 20.0 ml/m2 LA vol index: 27.9 ml/m2 IVC diam: 1.9 cm RVD1 (basal): 3.9 cm TAPSE: 2.2 cm Doppler Measurements & Calculations LVOT Max Cristobal: 84.4 cm/sec MV E max cristobal: 62.3 cm/sec LV V1 max P.9 mmHg MV A max cristobal: 69.5 cm/sec LV V1 VTI: 17.3 cm MV E/A: 0.90 Med Peak E' Cristobal: 7.2 cm/sec E/E' med: 8.6 Lat Peak E' Cristobal: 12.1 cm/sec E/E' lat: 5.1 E/e' average: 6.9 MV dec time: 0.20 sec PA V2 max: 66.4 cm/sec SV(LVOT): 74.1 ml PA V2 mean: 49.4 cm/sec PA mean P.0 mmHg PA Accel Time: 0.10 sec Reading Physician:03:39 PM
[2020-06-25 15:40] VITALS: BP 116/74; PULSE 58; RESP 16; TEMP 36.8; O2SAT 98
--- NOTE | 2020-06-25 17:57 | P.DS_ITS ---
History of Present Illness History of Present Illness Chief complaint: PALPITATIONS LEFT SHOULDER PAIN Narrative: Mr. Rosalino Martínez is a 60-year-old male with a past medical history significant for insomnia for which she previously took clonazepam but is no longer and urinary frequency who presents to the ER with complaints of palpitations. Patient reports having left posterior shoulder discomfort off and on for approximately 1 month. He describes location as next to his left scapula. He describes as an aching pain that is not palpable reproducible nor worsened with activity. The patient reports developing intermittent palpitations today that are brief and non associative with activity. He endorses mild chest pressure with shortness of breath in association with the episodes but denies diaphoresis. He has had no nausea or vomiting and denies cough or wheezing. The patient states he was concerned enough to take a 81 mg aspirin today. He has taken no other medications and a thing seems to make the discomfort better or worse. The patient provides a history of flying back from [place] yesterday. He denies any pleuritic chest discomfort, has no calf or leg pain. He states he does get up and walk around on the aircraft does not use compression stockings on long flights. He does have a significant family history of cardiac disease with his father having an arrhythmia for which he is anticoagulated an implanted cardiac defibrillator, his mother has mitral valve disease and his sister is described as having cardiac syncope and also had implanted cardiac defibrillator. The patient has had a previous cardiac evaluation with a stress test at age 32. Upon arrival to the ER the patient is afebrile with temperature 97.0?, his heart rate of 65, blood pressure 139/87, respirations 16 saturating 99% on room air. A chest x-ray is obtained which finds no acute cardiopulmonary processes. On laboratory analysis he has a white count of 5.7, hemoglobin of 13.3 and hematocrit of 38.3. He has a PT of 10.9 and INR is 0.9 and a PTT of 26. His electrolytes are within normal limits with a potassium of 3.8 and has a BUN of 24 and a creatinine 0.97. His magnesium level is 2.2. His liver functions are all within normal range and he has a total CK of 99 and a negative troponin less than 0.012. On 12 lead EKG sinus bradycardia with ventricular rate of [address] T-wave changes, no evidence of infarct. COVID-19 screening is negative. Cardiology is contacted by the ER provider recommends admission for monitoring serial troponins and echocardiogram. Per verbal report from the ER provider cardiology indicates the patient can undergo stress test on outpatient basis. In the ER the patient received aspirin 243 mg and is admitted to the medicine service for chest pain rule out ACS. Discharge Providers Provider Date of admission: 06/24/20 21:41 Discharge Date: 06/25/20 Primary care physician: MATILDE Yan Consults: 06/24/20 22:44 Consult to Dietitian, Adult Routine Comment: Reason For Exam: Chest pain, strong family history cardiac disease Discharge provider: Emeka Lanza MD Summary Hospital Course Discharge Diagnosis: 1. Chest pain Hospital Course: Patient admitted for chest pain and palpitations. He had serial negative cardiac enzymes. His EKGs were without ischemic changes and telemetry without evidence of arrhythmia. Transthoracic echo showed normal LVEF, no regional wall motion abnormalities, no valvular disease. At this time his symptoms have resolved. He is instructed to follow-up PCP and have an outpatient treadmill stress test scheduled in the near future. He is advised to return to ED if having any severe symptoms. Status at Discharge Cognitive/behavioral status at discharge: oriented Functional status at discharge: independent ambulation Overall status at discharge: patient is back to baseline Exam Vital Signs (past 8 hours): - 06/25/20 11:17 06/25/20 15:40 Temperature 98.2 F 98.2 F Pulse Rate 66 58 L Respiratory Rate 16 16 Blood Pressure 132/83 116/74 Pulse Oximetry 99 98 Oxygen Delivery Method Room Air Oxygen Flow Rate 0 Objective Labs Result Diagrams: 06/25/20 04:50 06/25/20 04:50 Labs: Laboratory Results - last 24 hr 06/24/20 06/24/20 06/24/20 19:55 19:55 19:55 WBC 5.7 RBC 4.05 L Hgb 13.3 L Hct 38.3 L MCV 94.6 MCH 32.8 MCHC 34.7 RDW 14.2 Plt Count 156 Neut % (Auto) 57.1 Lymph % (Auto) 29.6 [place] % (Auto) 9.2 Eos % (Auto) 3.1 Baso % (Auto) 1.0 Neut # (Auto) 3200 Lymph # (Auto) 1700 [place] # (Auto) 500 Eos # (Auto) 200 Baso # (Auto) 100 PT 10.9 INR 0.9 APTT 26 L D-Dimer Sodium 137 Potassium 3.8 Chloride 104 Carbon Dioxide 24 BUN 24 H Creatinine 0.97 Estimated GFR > 60.0 BUN/Creatinine Ratio 24.7 H Glucose 98 Calcium 9.3 Magnesium Total Bilirubin 0.6 AST 24 ALT 12 Alkaline Phosphatase 71 Total Creatine Kinase 99 CK-MB (CK-2) TNP CK-MB (CK-2) Rel Index TNP Troponin I < 0.012 Total Protein 6.8 Albumin 4.1 Globulin 2.7 Albumin/Globulin Ratio 1.5 Triglycerides Cholesterol LDL Cholesterol, Calc HDL Cholesterol COVID-19 PCR 06/24/20 06/24/20 06/24/20 19:57 21:20 23:55 WBC RBC Hgb Hct MCV MCH MCHC RDW Plt Count Neut % (Auto) Lymph % (Auto) [place] % (Auto) Eos % (Auto) Baso % (Auto) Neut # (Auto) Lymph # (Auto) [place] # (Auto) Eos # (Auto) Baso # (Auto) PT INR APTT D-Dimer Sodium Potassium Chloride Carbon Dioxide BUN Creatinine Estimated GFR BUN/Creatinine Ratio Glucose Calcium Magnesium 2.2 Total Bilirubin AST ALT Alkaline Phosphatase Total Creatine Kinase CK-MB (CK-2) CK-MB (CK-2) Rel Index Troponin I < 0.012 Total Protein Albumin Globulin Albumin/Globulin Ratio Triglycerides Cholesterol LDL Cholesterol, Calc HDL Cholesterol COVID-19 PCR Negative 06/24/20 06/25/20 06/25/20 23:55 04:50 04:50 WBC 4.9 RBC 3.98 L Hgb 12.8 L Hct 37.8 L MCV 94.9 MCH 32.1 MCHC 33.8 RDW 14.1 Plt Count 150 Neut % (Auto) 58.5 Lymph % (Auto) 28.0 [place] % (Auto) 8.6 Eos % (Auto) 4.0 Baso % (Auto) 0.9 Neut # (Auto) 2900 Lymph # (Auto) 1400 [place] # (Auto) 400 Eos # (Auto) 200 Baso # (Auto) 0 PT INR APTT D-Dimer < 200 Sodium 139 Potassium 4.2 Chloride 105 Carbon Dioxide 29 BUN 18 Creatinine 0.96 Estimated GFR > 60.0 BUN/Creatinine Ratio 18.8 Glucose 102 H Calcium 8.7 Magnesium Total Bilirubin AST ALT Alkaline Phosphatase Total Creatine Kinase CK-MB (CK-2) CK-MB (CK-2) Rel Index Troponin I < 0.012 Total Protein Albumin Globulin Albumin/Globulin Ratio Triglycerides 100 Cholesterol 163 LDL Cholesterol, Calc 94 HDL Cholesterol 49 COVID-19 PCR Discharge Plan Discharge Plan Patient Disposition: Home Discharge comment: Schedule follow up appointment with your PCP. You will need an outpatient stress test to complete cardiac work up. Return to ED if you develop any severe symptoms of chest discomfort, shortness of breath, or lightheadedness. Discharge orders & Medications Prescriptions: Continued ascorbic acid (vitamin C) 500 mg capsule 1,000 mg PO DAILY RF: 0 multivitamin Tablet 1 tab PO DAILY RF: 0 Follow up/Referrals: Claire Hodgson ARNP [Primary Care Provider] - Diet/Activity/Treatments Diet: Diet as Tolerated Visit Report/Discharge Packet Visit Report Forms: Patient Portal/API, Stroke Signs & Symptoms Discharge Data Primary Care Provider: Claire Hodgson Attending Provider: Corey Arreguin Admlyn Date/Time: 06/24/20 21:41
--- NOTE | 2020-06-25 19:10 | PC.NURSE ---
DORIS SHIFT NOTE(late entry): A&OX4. denied any chest pain, sob or n/v. denied any dizziness. CMS+. pp++. IVF infusing 1819: IV dc'd, tele dc'd discharge teaching provided to patient. pt refused wheelchair, pt escorted by DIANETIC COUNSELOR to the exit.
== END 2020-06-25 18:24 | disposition home or self-care (01) ==
LOC: ED 21:33 → AC 21:43
PROVIDERS: Admitting Provider Nurse Practitioner Adult Health; Emergency Provider Emergency Medicine; Family Provider Family Medicine; PCP Nurse Practitioner Family; Referring Provider Emergency Medicine; Visit Provider Nurse Practitioner Adult Health
DX: R07.9 Chest pain, unspecified (principal); R00.2 Palpitations; F51.01 Primary insomnia; G47.9 Sleep disorder, unspecified; Z11.59 Encounter for screening for other viral diseases
CPT/HCPCS: 36415; 71045; 80048; 80053; 80061; 82550; 83735; 84484; 85025; 85379; 85610; 85730; 87635; 93005; 93306; 94762; 96361; 96372; 96374; 99283; 99284; G0378; C9113; J1644; J7050

== ENCOUNTER 2020-06-26 17:38 | Emergency (ER) | payer OTHER, MEDICAID, SELFPAY ==
[2020-06-24 22:13] VITALS: BMI 28.1
[2020-06-26 17:40] VITALS: BP 132/83; PULSE 69; RESP 18; TEMP 36.6; O2SAT 97; BMI 28.1
[2020-06-26 18:02] VITALS: BP 126/81; PULSE 60; RESP 16; O2SAT 98
--- NOTE | 2020-06-26 18:03 | ED_ITS ---
HPI - Chest Pain General Chief Complaint: Chest Pain Stated Complaint: heart flutters Time Seen by Provider: 06/26/20 17:59 Source: patient Mode of arrival: Ambulatory Limitations: no limitations History of Present Illness HPI narrative: 60-year-old male who is just discharged from the hospital today after several days stay for chest pain. Had an echocardiogram which was unremarkable. Had negative enzymes. According to the discharge summary had no ectopy on his monitor while he was here. He states that after he was discharged he went to a couple stores. As he was driving home he had episodes where he felt like his heart was beating hard and sometimes fast. He had no other associated symptoms to include chest pain or shortness of breath or lightheadedness. Has not passed out. He states he did not have this symptoms while he was here in the hospital. He has never had anything like this in the past. He does have family history of ?heart rhythm problems? which according to his description sounds like atrial fibrillation. He has never had any issues with this in the past. Related Data Home Medications Medication Instructions Recorded Confirmed ascorbic acid (vitamin C) 500 mg 1,000 mg PO DAILY 03/23/20 06/24/20 capsule multivitamin 1 tab PO DAILY 03/23/20 06/24/20 Allergies Allergy/AdvReac Type Severity Reaction Status Date / Time No Known Drug Allergies Allergy Verified 06/26/20 17:50 Review of Systems Constitutional Constitutional: Denies fever(s) and Denies headache(s) ENT Ears, Nose, Mouth, and Throat: Denies headache(s) Cardiovascular Cardiovascular: Denies chest pain, Reports irregular heart rhythm and Denies dyspnea Respiratory Respiratory: Denies cough and Denies dyspnea Gastrointestinal Gastrointestinal: Denies nausea and Denies vomiting Genitourinary Genitourinary: Denies dysuria Genitourinary: Denies dysuria Musculoskeletal Musculoskeletal: Denies arthralgias and Denies myalgias Integumentary/Breasts Skin/Breast: Denies lesions and Denies rash Neurologic Neurologic: Denies behavioral changes and Denies headache(s) Psychiatric Psychiatric: Denies behavioral changes Hematologic/Lymphatic Hematologic/Lymphatic: Denies easy bleeding and Denies easy bruising Allergic/Immunologic Allergic/Immunologic: Denies urticaria Patient History Medical History Abdominal bloating (Acute) Black stool (Acute) Primary insomnia (03/08/17) Umbilical hernia (Acute) Surgical History (Updated 06/25/20 @ 00:18 by MATILDE Hurt) History of colonoscopy (Acute) History of removal of cyst (Acute) Status post amputation of extremity Status post hernia repair Family History (Updated 06/25/20 @ 00:20 by MATILDE Hurt) Grandmother Heart disease Grandfather Cancer Grandmother Dementia Father Heart disease Cancer Mother Gallstones Sister Cardiac arrhythmia S/P implantation of automatic cardioverter/defibrillator (AICD) Grandfather Suicide Social History marital status: household members: spouse occupational status: employed Smoking Status: Never smoker alcohol intake: current substance use type: does not use Smoking Status: Never smoker alcohol intake frequency: a few times a week Substance Use Type: does not use Exam Initial Vital Signs Initial Vital Signs: Vital Signs Temperature 97.8 F 06/26/20 17:40 Pulse Rate 69 06/26/20 17:40 Respiratory Rate 18 06/26/20 17:40 Blood Pressure 132/83 06/26/20 17:40 Pulse Oximetry 97 06/26/20 17:40 Const General: cooperative, healthy appearing, comfortable and well developed Limitations: mental status not altered HENMT Head: normal to inspection and normocephalic Resp Effort & Inspection: normal respiratory effort Auscultation: clear to auscultation bilaterally Cardio Rate: regular rate Rhythm: regular rhythm Pulses: radial pulses present Skin Lesions: no lesions Rashes: no rashes Neuro General: patient alert and patient awake Cognition: normal cognition Speech: speech normal Extrem General: normal to inspection and capillary refill normal Psych Appearance: grossly normal and well kempt Scores GCS [place] coma scale eye opening: Spontaneous Roberto coma scale verbal response: Orientated [place] coma scale motor response: Obey commands Roberto coma scale total score: 15 Course Orders Ordered: ED Orders 06/26/20 18:00 Complete Blood Count AUTO DIFF Stat Comprehensive Metabolic Panel Stat Lipase Stat Partial Thromboplastin Time Stat Prothrombin Time INR Stat Troponin & CK Cardiac Panel Stat Vital Signs Vital signs: Vital Signs - 8 hr 06/26/20 17:40 06/26/20 18:02 Temperature 97.8 F Pulse Rate 69 60 Respiratory Rate 18 16 Blood Pressure 132/83 126/81 Pulse Oximetry 97 98 MDM - Chest Pain Lab Data Result diagrams: 06/26/20 18:00 06/26/20 18:00 Labs: Lab Results 06/26/20 06/26/20 06/26/20 Range/Units 18:00 18:00 18:00 WBC 5.3 (4.5-11.0) X10^3/uL RBC 4.00 L (4.5-5.9) X10^6/uL Hgb 13.1 L (13.5-17.5) g/dL Hct 37.3 L (41-53) % MCV 93.4 (80-100) fL MCH 32.9 (26-34) PG MCHC 35.2 (30-36) % RDW 14.0 (11.6-14.8) % Plt Count 166 (150-400) X10^3/uL Neut % (Auto) 52.6 (50-75) % Lymph % (Auto) 34.2 (25-40) % [place] % (Auto) 9.6 (3-14) % Eos % (Auto) 2.7 (2-4) % Baso % (Auto) 0.9 (0-2) % Neut # (Auto) 2800 (9888-4883) /uL Lymph # (Auto) 1800 (7653-1935) /uL [place] # (Auto) 500 (0-900) /uL Eos # (Auto) 100 (0-450) /uL Baso # (Auto) 0 (0-100) /uL PT 11.2 (10.1-12.7) SECONDS INR 1.0 (0.9-1.3) APTT 27 (26.4-36.2) SECONDS Sodium 138 (137-145) mmol/L Potassium 3.7 (3.4-5.1) mmol/L Chloride 105 (98-107) mmol/L Carbon Dioxide 26 (22-32) mmol/L BUN 20 (9-20) mg/dL Creatinine 1.03 (0.66-1.25) mg/dL Estimated GFR > 60.0 (>60) mL/min BUN/Creatinine Ratio 19.4 (6-22) Glucose 94 (70-100) mg/dL Calcium 8.9 (8.4-10.2) mg/dL Total Bilirubin 0.6 (0.2-1.3) mg/dL AST 19 (17-59) IU/L ALT 12 (<50) IU/L Alkaline Phosphatase 69 (38-126) U/L Total Creatine Kinase 76 (55-170) U/L CK-MB (CK-2) TNP CK-MB (CK-2) Rel Index TNP Troponin I < 0.012 (0.01-0.034) ng/mL Total Protein 6.9 (6.3-8.2) g/dL Albumin 4.2 (3.5-5.0) g/dL Globulin 2.7 (1.7-4.1) g/dL Albumin/Globulin Ratio 1.6 (1.0-2.8) Lipase 143 (23-300) U/L ECG Data Attestation: I personally reviewed and interpreted this ECG as follows: Prior ECG tracings: not available for review Interpretation: Sinus rhythm Ventricular rate of 68 Normal axis Normal QRS Normal QTC No delta waves Frequent PVCs No ST T wave changes MDM Narrative Medical decision making narrative: Reviewed the patient's prior admission to the hospital which he had a workup for chest discomfort and a normal echocardiogram. Patient had frequent PVCs on his EKG. A seem that this is what is causing his symptoms that brought him in. He has no signs of [id number] on the EKG. He was not having chest pain or shortness of breath did not pass out. I discussed PVCs with the patient. Informed him that he should talk with his primary doctor about having a stress test performed to complete his workup for which she was admitted to the hospital just recently and also talk with his primary doctor about a Holter monitor. He was given return precautions and follow-up instructions. He expressed understanding and agreement with plan. Discharge Plan Departure Patient Disposition: Home Clinical Impression: Palpitations, Frequent PVCs Discharge Date/Time: 06/26/20 18:34 Instructions: Premature Ventricular Beats Activity Restrictions/Additional Instructions: Recommend that you continue all of your medications as directed. I do recommend that you contact your primary doctor to discuss scheduling a stress test to complete the workup from your admission to the hospital and also discuss a Holter monitor. Return to the emergency department for any new or worsening symptoms Prescriptions: No Action ascorbic acid (vitamin C) 500 mg capsule 1,000 mg PO DAILY RF: 0 multivitamin Tablet 1 tab PO DAILY RF: 0 Referrals: Claire Hodgson ARNP [Primary Care Provider] -
[2020-06-26 18:22] LABS: Add Manual Diff / Slide Review NO; Basophils Absolute Auto 0 /uL (0-100); Basophils Percent Auto 0.9 % (0-2); Eosinophils Absolute Auto 100 /uL (0-450); Eosinophils Percent Auto 2.7 % (2-4); Hematocrit 37.3 % (41-53); Hemoglobin 13.1 g/dL (13.5-17.5); Lymphocytes Absolute Auto 1800 /uL (1100-4500); Lymphocytes Percent Auto 34.2 % (25-40); Mean Corpuscular HGB Conc 35.2 % (30-36); Mean Corpuscular Hemoglobin 32.9 PG (26-34); Mean Corpuscular Volume 93.4 fL (80-100); Monocytes Absolute Auto 500 /uL (0-900); Monocytes Percent Auto 9.6 % (3-14); Neutrophils Absolute Auto 2800 /uL (1500-7000); Neutrophils Percent Auto 52.6 % (50-75); Platelet Count 166 X10^3/uL (150-400); White Blood Cell Count 5.3 X10^3/uL (4.5-11.0)
[2020-06-26 18:23] LABS: Prothrombin Time 11.2 SECONDS (10.1-12.7)
[2020-06-26 18:26] LABS: PTT Partial Thromboplastin Tim 27 SECONDS (26.4-36.2)
[2020-06-26 18:27] LABS: Alanine Aminotransferase 12 IU/L (<50); Albumin 4.2 g/dL (3.5-5.0); Albumin Globulin Ratio 1.6 (1.0-2.8); Alkaline Phosphatase 69 U/L (38-126); Aspartate Aminotransferase 19 IU/L (17-59); BUN Creatinine Ratio 19.4 (6-22); Bilirubin Total 0.6 mg/dL (0.2-1.3); Blood Urea Nitrogen 20 mg/dL (9-20); Calcium 8.9 mg/dL (8.4-10.2); Carbon Dioxide 26 mmol/L (22-32); Chloride 105 mmol/L (98-107); Creatine Kinase 76 U/L (55-170); Estimated Glomerular Filt Rate > 60.0 mL/min (>60); Globulin 2.7 g/dL (1.7-4.1); Glucose 94 mg/dL (70-100); HEMOLYSIS < 15 (0-50); Lipase 143 U/L (23-300); Potassium 3.7 mmol/L (3.4-5.1); Sodium 138 mmol/L (137-145); Total Protein 6.9 g/dL (6.3-8.2)
[2020-06-26 18:38] LABS: Troponin I < 0.012 ng/mL (0.01-0.034)
== END 2020-06-26 18:34 | disposition home or self-care (01) ==
PROVIDERS: Emergency Medicine; Emergency Provider Emergency Medicine; Family Provider Family Medicine; PCP Nurse Practitioner Family
DX: R00.2 Palpitations (principal); I49.3 Ventricular premature depolarization
CPT/HCPCS: 36415; 80053; 82550; 83690; 84484; 85025; 85610; 85730; 93005; 99283

== ENCOUNTER → 2020-07-01 11:15 | Outpatient (CLI) | payer OTHER, MEDICAID, SELFPAY ==
[2020-06-24 22:13] VITALS: BMI 28.1
== END ==
PROVIDERS: Family Provider Family Medicine; PCP Nurse Practitioner Family; Visit Provider Nurse Practitioner Family
DX: Z20.2 Contact with and (suspected) exposure to infections with a predominantly sexual mode of transmission (principal)
CPT/HCPCS: 87491; 87591

== ENCOUNTER → 2020-07-28 17:08 | Outpatient (CLI) | payer OTHER, MEDICAID, SELFPAY ==
[2020-06-24 22:13] VITALS: BMI 28.1
[2020-07-28 18:00] LABS: Add Manual Diff / Slide Review NO; Basophils Absolute Auto 0 /uL (0-100); Basophils Percent Auto 0.6 % (0-2); Eosinophils Absolute Auto 100 /uL (0-450); Eosinophils Percent Auto 1.6 % (2-4); Hematocrit 42.2 % (41-53); Hemoglobin 14.3 g/dL (13.5-17.5); Lymphocytes Absolute Auto 1600 /uL (1100-4500); Lymphocytes Percent Auto 24.7 % (25-40); Mean Corpuscular Hemoglobin 31.9 PG (26-34); Mean Corpuscular Volume 93.9 fL (80-100); Monocytes Absolute Auto 600 /uL (0-900); Monocytes Percent Auto 9.7 % (3-14); Neutrophils Absolute Auto 4100 /uL (1500-7000); Neutrophils Percent Auto 63.4 % (50-75); Platelet Count 183 X10^3/uL (150-400); Red Cell Distribution Width 13.2 % (11.6-14.8); White Blood Cell Count 6.5 X10^3/uL (4.5-11.0)
[2020-07-28 18:11] LABS: Hemoglobin A1C% w Est Avg Glu 5.3 % (4.0-6.0)
[2020-07-28 18:19] LABS: Alanine Aminotransferase 12 IU/L (<50); Albumin 4.6 g/dL (3.5-5.0); Albumin Globulin Ratio 1.5 (1.0-2.8); Alkaline Phosphatase 71 U/L (38-126); Aspartate Aminotransferase 22 IU/L (17-59); BUN Creatinine Ratio 19.4 (6-22); Bilirubin Total 0.5 mg/dL (0.2-1.3); Blood Urea Nitrogen 19 mg/dL (9-20); Calcium 9.3 mg/dL (8.4-10.2); Carbon Dioxide 30 mmol/L (22-32); Chloride 102 mmol/L (98-107); Estimated Glomerular Filt Rate > 60.0 mL/min (>60); Glucose 108 mg/dL (70-100); HEMOLYSIS < 15 (0-50); Sodium 139 mmol/L (137-145); Total Protein 7.6 g/dL (6.3-8.2)
[2020-07-28 18:51] LABS: Prostate Specific Antigen Scrn 1.12 ng/mL (0.1-4.0); TSH w/ Reflex to FT4 1.32 uIU/mL (0.47-4.68)
[2020-07-28 19:09] LABS: Vitamin B12 410 pg/mL (239-931)
== END ==
PROVIDERS: Family Provider Family Medicine; PCP Nurse Practitioner Family; Referring Provider Family Medicine; Visit Provider Family Medicine
DX: R53.83 Other fatigue (principal)
CPT/HCPCS: 36415; 80053; 82607; 83036; 84443; 85025; G0103